=== PATIENT | female | born 1985 | race Caucasian/White ===

== ENCOUNTER → 2017-07-17 | Emergency (ER) | payer BC ==
[~2017-07-17] VITALS: Ht 165.1 cm; Wt 134.1 kg
[~2017-07-17] MED LIST: AMOXICILLIN 50500 MG PO; BACTRIM DS 8001 TAB PO; CEPHALEXIN500 M1 PO; FLAGYL500 MG PO; LAMISIL250 MG PO; MOTRIN 600600 MG/TAB PO; MOTRIN 800800 MG/TAB PO; NO HOME MEDICATIONS; NORCO 325 MG-51 TAB PO; NORCO 325 MG-7.1 TAB PO; PERCOCET 325 MG1 TA2 PO; PRENATAL1 TA1 PO; PRENATAL1 TA5 PO; PRILOTC; SENOKOT S 50 MG1 TAB PO; ZOFRAN 4MG T4 MG/TAB PO; ZOFRAN ODT4 MG PO
[2017-07-17 09:04] VITALS: TEMP 99.2
[2017-07-17 09:38] LABS: COLLECTION METHOD CLEAN CATCH
[2017-07-17 09:49] LABS: MUCOUS Present /lpf; PH 5 (5-8); URINE APPEARANCE Hazy; URINE BACTERIA Rare /hpf; URINE BILIRUBIN Negative (NEGATIVE); URINE BLOOD 1+ (NEGATIVE); URINE COLOR Amber; URINE GLUCOSE Negative (NEGATIVE); URINE KETONE Negative (NEGATIVE); URINE LEUKOCYTE ESTERASE Negative (NEGATIVE); URINE NITRATE Negative (NEGATIVE); URINE PROTEIN(semi-quant) 1+ (NEGATIVE); URINE RBC 20-50 /hpf
[2017-07-17 10:09] LABS: BASO % 0.3 % (0.0-2.0); EOS % 0.1 % (0-4.0); GRAN # 10.3 (1.4-6.5); GRAN % 84.7 % (42.2-75.2); HEMATOCRIT 44.8 % (37.0-47.0); HEMOGLOBIN 15.1 g/dl (12.5-16.0); LYMPH % 8.4 % (20.0-51.0); MEAN CELL VOLUME 86 fl (80.0-100.0); MEAN CORPUSCULAR HEMOGLOBIN 29 pg (27.0-31.0); MEAN CORPUSCULAR HGB CONC 34 g/dl (33.0-37.0); MEAN PLATELET VOLUME 10.5 fl (7.4-10.4); MONO # 0.8 (0.1-0.6); MONO % 6.2 % (1.7-9.3); PLATELET COUNT 257 K/mm3 (130-400); RED BLOOD COUNT 5.21 M/mm3 (4.10-5.30); REDCELL DISTRIBUTION WIDTH-CV 13.1 % (11.5-14.5)
[2017-07-17 10:19] LABS: ALBUMIN 4.5 gm/dL (3.5-5.0); BILIRUBIN,TOTAL 0.7 mg/dL (0.0-1.0); C-REACTIVE PROTEIN 5.1 mg/dL (0.0-0.9); CALCIUM 9.3 mg/dL (8.4-10.2); CREATININE, serum 0.65 mg/dL (0.52-1.25); POTASSIUM 3.6 mmol/L (3.4-5.0); TOTAL PROTEIN 7.7 gm/dL (6.4-8.2)
[2017-07-17 12:20] VITALS: BP 123/84; PULSE 79
== END ==
LOC: COL.ER 09:00
PROVIDERS: Physician Assistant
DX: A08.4 Viral intestinal infection, unspecified (principal); Z90.49 Acquired absence of other specified parts of digestive tract; Z98.890 Other specified postprocedural states
CPT/HCPCS: J1885; J2405; J7030

== ENCOUNTER 2017-10-08 20:23 | Emergency (ER) | payer BC ==
[~2017-10-08] VITALS: Ht 165.1 cm; Wt 131.8 kg
[2017-10-08 20:25] VITALS: BP 136/74; TEMP 98.2
[2017-10-08] MEDS ORDERED: FLEXERIL 1010 MG/TAB PO (21:13)
[2017-10-08] MEDS ORDERED: NORCO 325 MG-51 TAB PO (21:13)
[2017-10-08 21:41] VITALS: PULSE 92
== END 2017-10-08 21:42 | disposition home or self-care (01) ==
LOC: COL.ER 20:23
DX: S29.011A Strain of muscle and tendon of front wall of thorax, initial encounter (principal); J45.909 Unspecified asthma, uncomplicated; Z90.49 Acquired absence of other specified parts of digestive tract; Z98.890 Other specified postprocedural states; X50.0XXA Overexertion from strenuous movement or load, initial encounter
CPT/HCPCS: A9284

== ENCOUNTER 2019-05-20 11:14 | Outpatient (CLI) | payer MEDICAID ==
[~2019-05-20] VITALS: Ht 162.6 cm; Wt 139.1 kg
[~2019-05-20 11:14] MED LIST changes: +FLEXERIL 1010 MG/TAB PO
--- NOTE | 2019-05-20 11:25 | NUR ---
Pt presents ambulatory to unit from ER with spouse and children, reports decreased movement, denies contractions or leaking of fluid. Pt changed into gown and placed in left lateral position on bed. EFM explained and placed. Vitals taken, assessment done.
[2019-05-20] MEDS ORDERED: PRENATAL TABLET PO (11:43)
[2019-05-20 12:00] VITALS: BP 109/59; PULSE 79; TEMP 98.9
[2019-05-20 12:12] VITALS: BP 109/59; PULSE 79; TEMP 98.9
--- NOTE | 2019-05-20 12:30 | NUR ---
Discharge instructions provided on discomforts of and early labor with emphasis on kick counts and movement. Pt verbalized understanding to return if changes noted.
== END 2019-05-20 12:35 | disposition home or self-care (01) ==
LOC: LDRO 11:14
DX: O36.8130 Decreased fetal movements, third trimester, not applicable or unspecified (principal); Z3A.35 35 weeks gestation of pregnancy

== ENCOUNTER 2019-06-20 08:03 | Inpatient (IN) | payer MEDICAID ==
[~2019-06-20] VITALS: Ht 162.6 cm; Wt 140.0 kg
[2019-06-20] VITALS (18 sets, daily range): BP systolic 51–124; BP diastolic 35–83; PULSE 47–78; TEMP 98–98.9
[~2019-06-20 08:03] MED LIST changes: +PRENATAL TABLET PO
[2019-06-20 11:01] LABS: BASO % 0.3 % (0.0-2.0); EOS # 0.1 (0.0-0.7); EOS % 0.8 % (0-4.0); HEMATOCRIT 38.4 % (37.0-47.0); HEMOGLOBIN 12.9 g/dl (12.5-16.0); LYMPH # 1.9 (1.2-3.4); LYMPH % 16.1 % (20.0-51.0); MEAN CELL VOLUME 87 fl (80.0-100.0); MEAN CORPUSCULAR HEMOGLOBIN 29 pg (27.0-31.0); MEAN CORPUSCULAR HGB CONC 34 g/dl (33.0-37.0); MEAN PLATELET VOLUME 11.7 fl (7.4-10.4); MONO # 0.8 (0.1-0.6); MONO % 6.4 % (1.7-9.3); PLATELET COUNT 185 K/mm3 (130-400); RED BLOOD COUNT 4.42 M/mm3 (4.10-5.30)
[2019-06-21 04:50] VITALS: BP 103/59; PULSE 75; TEMP 98.2
[2019-06-21 08:32] VITALS: BP 110/49; PULSE 59; TEMP 98.2
--- NOTE | 2019-06-21 12:40 | NUR ---
Initial visit attempt; Patient sleeping, Upper [place] Bottom Lacer Hand left card of congratulations for the of their son and information regarding the availability of spiritual care at [facility].
[2019-06-21 16:32] VITALS: BP 121/54; PULSE 89; TEMP 97.7
[2019-06-21 19:45] VITALS: BP 148/82; PULSE 97; TEMP 98
[2019-06-22] MEDS ORDERED: IBU800 M1 PO (07:49)
[2019-06-22] MEDS ORDERED: PERCOCET 325 MG1 TA2 PO (07:49)
[2019-06-22 08:00] VITALS: BP 150/85; PULSE 75; TEMP 98.5
[2019-06-22 12:00] VITALS: BP 117/58; PULSE 67
[2019-06-22 16:00] VITALS: BP 132/69; PULSE 78; TEMP 98.3
[2019-06-22 20:45] VITALS: BP 144/85; PULSE 92; TEMP 98.2
[2019-06-23 07:20] VITALS: BP 120/47; PULSE 58; TEMP 97.9
== END 2019-06-23 15:15 | disposition home or self-care (01) | DRG 788 ==
LOC: OB 08:03
PROVIDERS: ADMIT Student in an Organized Health Care Education/Training Program
PROC: 10D00Z1 Extraction of Products of Conception, Low, Open Approach (ICD-10-PCS; principal; 2019-06-20)
DX: O34.211 Maternal care for low transverse scar from previous cesarean delivery (principal); O99.214 Obesity complicating childbirth; E66.01 Morbid (severe) obesity due to excess calories; O99.52 Diseases of the respiratory system complicating childbirth; J45.909 Unspecified asthma, uncomplicated; O99.824 Streptococcus B carrier state complicating childbirth; Z3A.39 39 weeks gestation of pregnancy; Z37.0 Single live birth; Z90.49 Acquired absence of other specified parts of digestive tract
CPT/HCPCS: J0690; J1885; J2175; J2370; J2405; J2590; J3010; J7120